=== PATIENT | male | born 1995 | race African-American/Black ===

== ENCOUNTER 2017-04-20 17:14 | Emergency (ER) | payer BC ==
[~2017-04-20] VITALS: Ht 182.9 cm; Wt 77.0 kg
[2017-04-20 17:23] VITALS: TEMP 36.9; Ht 182.9 cm; Wt 77.0 kg
[2017-04-20] MEDS ORDERED: PROPARACAINE HCL 0.5% OP SOLN 15 ML BTL ONE (17:31)
[2017-04-20] MEDS ORDERED: CIPROFLOXACIN HCL 0.3% OP SOLN 2.5 ML BTL OP ONE (17:45)
[2017-04-20 18:10] VITALS: BP 107/81; PULSE 72; O2SAT 99
--- NOTE | 2017-04-20 23:46 | EMERGENCY ROOM VISIT NOTE ---
ED Visit Note First contact with patient: 17:23 CHIEF COMPLAINT: Eye pain HISTORY OF PRESENT ILLNESS: This 21-year-old male patient presents to the emergency department complaining of pain in the right eye for the past one day. There has been a constant moderate pain and irritation, redness and tearing in the eye. There is a mild blurring of vision at times and light bothers the eye. The vision has not been decreased over all. The patient does wear contacts, and slept with him in last night. The patient rates the pain as sharp and 6/10. The patient has not had previous injuries to this eye. Tetanus shot is reportedly up to date. REVIEW OF SYSTEMS: A 6 system review of systems was completed with positives and pertinent negatives listed in the HPI. ALLERGIES: No known allergies MEDICATIONS: No chronic medication PMH: Otherwise healthy SOCIAL HISTORY: Student who lives locally PHYSICAL EXAM: Vital Signs: Reviewed Nurse's notes, vital signs stable. Visual acuity 20/30 bilateral with glasses. GENERAL: This is a white male, in no acute distress, but who is uncomfortable from the eye problem. Well-developed well-nourished. EYES: The pupils are equal round and reactive to light and accommodation. EOMs are full and without tenderness. There is discharge of clear tears from the right eye which is injected. There is no foreign body visible under the eyelid even after lid eversion. Funduscopic exam reveals no hemorrhages, papilledema, or other abnormalities. No foreign body was seen embedded in the cornea under slit lamp exam. The cornea was clear and no hyphema was seen. Fluorescein uptake was observed with ultraviolet light significant for a corneal abrasion at 8:00. EMERGENCY DEPARTMENT COURSE: I examined the patient. Alcaine 2 drops were placed in the patient's right eye. A slit lamp exam was performed as above. Ciloxan two drops was placed in the patient's right eye. The patient was discharged home in good condition with instructions as below. Current/Historical Medications No Active Prescriptions or Reported Meds Allergies Coded Allergies: No Known Allergies (Unverified , 04/20/17) Vital Signs Date Time Temp Pulse Resp B/P (MAP) Pulse Ox O2 Delivery O2 Flow Rate FiO2 04/20/17 18:10 72 16 107/81 99 04/20/17 17:23 36.9 77 16 122/69 99 Medications Administered Medications (Trade) Dose Ordered Sig/Anjelica Route Start Time Stop Time Status Last Admin Dose Admin Ciprofloxacin HCl (Ciprofloxacin 0.3% Op Soln) 2 drops NOW ONCE OP 04/20/17 17:45 04/20/17 17:46 DC 04/20/17 18:10 2 DROPS Departure Information Impression Primary Impression: Corneal abrasion Dispostion Home / Self-Care Condition GOOD Prescriptions No Active Prescriptions or Reported Meds Forms HOME CARE DOCUMENTATION FORM, IMPORTANT VISIT INFORMATION Patient Instructions My [facility] Additional Instructions You were seen and evaluated today on an emergency basis only. This is not a substitute for, or an effort to provide, complete comprehensive medical care. It is not possible to recognize and treat all injuries or illnesses in a single emergency department visit. For this reason it is recommended that you followup with [facility] this week for recheck of your condition. Use Ciloxan Eye Drops: Instill 1-2 drops into the conjunctival sac every 2 hours while awake for 2 days and 1-2 drops every 4 hours while awake for the next 5 days You are welcome to return to the emergency department anytime with new, worsening, or concerning symptoms.
== END 2017-04-20 18:10 | disposition home or self-care (01) ==
LOC: C.EDB 17:17 → C.EDD 18:10
DX: S05.01XA Injury of conjunctiva and corneal abrasion without foreign body, right eye, initial encounter (principal); X58.XXXA Exposure to other specified factors, initial encounter